=== PATIENT | male | born 1960 | race Two or more races ===

== ENCOUNTER 2019-07-02 17:11 | Emergency (ER) | payer OTHER, SELFPAY ==
[~2019-07-02] VITALS: Ht 188 cm; Wt 102.9 kg
[2019-07-02 17:18] VITALS: BP 172/96
[2019-07-02] MEDS ORDERED: FLUORESCEIN OPHTHALMIC 1 MG STRIP ONE (17:41)
[2019-07-02] MEDS ORDERED: PROPARACAINE OPHTH 0.5%, 15ML ONE (17:41)
--- NOTE | 2019-07-02 17:49 | NUR ---
PT AT WORK TODAY AND GOT A CHEMICAL IN HIS EYE. PT WASHED WITH WATER BUT L EYE IS STILL PAINFUL AND RED.
--- NOTE | 2019-07-02 18:28 | NUR ---
EYE IRRIGATED WITH JOSUE LENSE AND NS PER MD ORDER Addendum: 07/03/19 at 1427 by [email or web address] 1L NS USED, PT TOLERATED WELL.
[2019-07-02] MEDS ORDERED: PROPARACAINE OPHTH 0.5%, 15ML EACHEYE ONE (18:30)
--- NOTE | 2019-07-02 19:33 | NUR ---
PT IRRIGATED A 2ND L VIA JOSUE LENS. PT TOLERATED PROCEDURE WELL AND STATES THAT HIS EYE FEELS BETTER AFTER FURTHER IRRIGATION.
[2019-07-02] MEDS ORDERED: HYDROcodone/APAP 10/325 MG TABLET ONE (19:44)
[2019-07-02] MEDS ORDERED: HYDROcodone/APAP 10/325 MG TABLET PO ONE (20:00)
--- NOTE | 2019-07-02 20:53 | NUR ---
REGGIE BEVERLY IN TO RECHECK. INSTRUCTED TO START 6TH L OF NS IRRIGATION.
--- NOTE | 2019-07-02 20:56 | NUR ---
6TH LITER COMPLETED. PER ER MD HOWARD LENS. PT FOR RECHECK.
--- NOTE | 2019-07-02 21:24 | NUR ---
REGGIE CARRERO STATES SPIKE ANOTHER LITER AND CONTINUE IRRITATION
--- NOTE | 2019-07-02 21:38 | NUR ---
DR CARRERO SPOKE WITH DR EDVIN HASSAN
--- NOTE | 2019-07-02 21:47 | NUR ---
7TH LITER INITIATED
--- NOTE | 2019-07-02 22:01 | NUR ---
8TH LITER INITIATED
--- NOTE | 2019-07-02 22:18 | NUR ---
PT OFFERED A BREAK FROM IRRIGATION. PT STATES HE IS WILLING TO CONTINUE TO IRRIGATE. 9TH LITER STARTED.
--- NOTE | 2019-07-02 22:25 | NUR ---
OPTHOMOLOGIST SPECIFICATIONS WRITER IN TO ASSESS PT AT THIS TIME
[2019-07-02] MEDS ORDERED: HYDROcodone/APAP 5/325 TABLET PO ONE (23:30)
--- NOTE | 2019-07-02 23:43 | NUR ---
PT COMPLETED 2 ADDITIONAL L NS IRRIGATION FOR A TOTAL OF 10 L NS IRRIGATED THROUGH LEFT EYE DURING ED VISIT. PT TOLERATED PROCEDURE WELL AND GIVEN FOLLOW UP INSTRUCTIONS. ALL QUESTIONS ANSWERED AND AMBULATORY TO THE DISCHARGE DESK WITH STEADY GAIT.
== END 2019-07-02 23:47 | disposition home or self-care (01) ==
LOC: ED 23:00
DX: H10.212 Acute toxic conjunctivitis, left eye (principal); S05.02XA Injury of conjunctiva and corneal abrasion without foreign body, left eye, initial encounter; X58.XXXA Exposure to other specified factors, initial encounter; Y92.89 Other specified places as the place of occurrence of the external cause; Y99.0 Civilian activity done for income or pay; Z72.89 Other problems related to lifestyle
CPT/HCPCS: 99283